=== PATIENT | female | born 1995 | race Two or more races ===

== ENCOUNTER → 2019-08-26 | Outpatient (CLI) | payer OTHER ==
[~2019-08-26] MED LIST: CODE1TAB37 PO; COLACE100 MG PO; PRENATAL CAPLE1 EACH PO
== END | disposition home or self-care (01) ==
LOC: PRENATAL 13:00
DX: O99.212 Obesity complicating pregnancy, second trimester (principal); O35.3XX1 Maternal care for (suspected) damage to fetus from viral disease in mother, fetus 1; O34.211 Maternal care for low transverse scar from previous cesarean delivery

== ENCOUNTER → 2019-09-26 | Outpatient (CLI) | payer OTHER | END | disposition home or self-care (01) | LOC: PRENATAL 09-23 09:30 | DX: O26.842 Uterine size-date discrepancy, second trimester (principal); O34.219 Maternal care for unspecified type scar from previous cesarean delivery; O99.212 Obesity complicating pregnancy, second trimester; Z3A.23 23 weeks gestation of pregnancy ==

== ENCOUNTER 2020-01-09 16:50 | Inpatient (IN) | payer OTHER ==
[~2020-01-09] VITALS: Ht 162.6 cm; Wt 4.1 kg
== END 2020-01-13 15:25 | disposition home or self-care (01) | DRG 785 ==
LOC: O/R 16:50 → LDR 16:50 → O/R 01-10 13:13 → OB/GYN 01-10 14:52
PROVIDERS: ADMIT Obstetrics & Gynecology Obstetrics
PROC: 0UB70ZZ Excision of Bilateral Fallopian Tubes, Open Approach (ICD-10-PCS; 2020-01-10)
PROC: 4A1HXFZ Monitoring of Products of Conception, Cardiac Rhythm, External Approach (ICD-10-PCS; 2020-01-10)
PROC: 10D00Z1 Extraction of Products of Conception, Low, Open Approach (ICD-10-PCS; principal; 2020-01-10 11:00)
DX: O34.211 Maternal care for low transverse scar from previous cesarean delivery (principal); Z3A.38 38 weeks gestation of pregnancy; Z37.0 Single live birth; Z30.2 Encounter for sterilization